=== PATIENT | female | born 1970 | race Caucasian/White ===

== ENCOUNTER 2017-09-15 14:59 | Observation (INO) ==
[2017-09-15] MEDS ORDERED: Isovue-370 500 ML INFUS..BTL IV ONE (15:11)
[2017-09-15] MEDS ORDERED: 0.9 % Sodium Chloride 500 ML IVC ONE (15:11)
--- NOTE | 2017-09-15 15:14 | Emergency Department Note ---
Disposition Clinical Impression: Pulmonary nodules Chest pain Qualifiers: Chest pain type: unspecified Qualified Code(s): R07.9 - Chest pain, unspecified Disposition: Admitted As Inpatient Condition: Undetermined Referrals: Nitza Perez DO [Primary Care Provider] - Forms: ED Satisfaction Letter Time of Disposition: 18:24 Chest Pain HPI - General Chief Complaint: ED Chest Pain Stated Complaint: chest pain Time Seen by Provider: 09/15/17 15:07 Source: patient Mode of arrival: ambulatory Limitations: no limitations Vital Signs Reviewed: Yes Nursing Notes Reviewed: Yes - History of Present Illness HPI Narrative: 47-year-old female smoker, arrives to the emergency department with complaint of chest pain, shortness of breath, left upper extremity paresthesias and headache. The patient states that this is been ongoing for the past couple days and she will actually went [facility] where they wanted to keep her perform a stress test but she refused at that time because she was scared. The patient denies any history of hypertension, hyperlipidemia, diabetes but does have family history of heart disease. The patient denies any other complaints at this time. She is very anxious in the room but denies any other complaints. The patient's pain is retrosternal and radiates into the left shoulder. The patient also is describing numbness and paresthesias of the left upper extremity and a headache. Patient's headache is throbbing in nature. She is alert and oriented 3 and answering all questions verbally. Severity scale (1-10): 5 - Related Data Home Medications Medication Instructions Recorded Confirmed Calcium Carbonate/Vitamin D3 1 each PO DAILY 03/09/16 09/13/17 [Calcium 600 + Vit D Tablet] raNITIdine HCl [Zantac] 150 mg PO QDPC 03/09/16 09/13/17 Allergies Allergy/AdvReac Type Severity Reaction Status Date / Time Erythromycin Base AdvReac Palpitation Verified 09/13/17 13:45 s All systems ED: reviewed and negative except as stated. Constitutional: Reports: weakness. Denies: fever, chills ENT ED: Denies: congestion Cardiovascular: Reports: chest pain, dyspnea on exertion. Denies: edema, syncope Respiratory: Reports: dyspnea. Denies: cough, wheezes Gastrointestinal: Denies: abdominal pain, nausea, vomiting Genitourinary: Denies: urgency, dysuria Musculoskeletal: Denies: back pain, neck pain Integumentary: Denies: rash Neurological: Reports: headache. Denies: weakness, numbness, paresthesias, confusion Chest Pain PMH - Past Medical History Medical history: Reports: GERD, osteoporosis Surgical history: Reports: non-contributory Psychiatric history: Reports: no psych history TRAILER ASSEMBLER history: Reports: no TRAILER ASSEMBLER history - Social History Smoking Status: Current every day smoker Alcohol use: Reports: occasionally Drug use: Reports: marijuana Physical Exam - General Limitations: no limitations General appearance: alert, in no apparent distress, anxious - Head Head exam: atraumatic, normocephalic, normal inspection - Eye Eye exam: Present: normal appearance, PERRL, EOMI - ENT ENT exam: normal exam, normal oropharynx, mucous membranes moist - Neck Neck exam: Present: normal inspection, full ROM, trachea midline - Chest Chest inspection: Present: normal inspection, symmetric chest wall rise - Respiratory Respiratory exam: Present: other (Coarse breath sounds) - Cardiovascular Cardiovascular exam: Present: regular rate, normal rhythm, normal heart sounds - Abdominal Exam Abdominal exam: Present: soft, Non-Tender. Absent: tenderness, distention, guarding, rebound, rigidity - Extremities Exam Extremities exam: Present: normal inspection, full ROM. Absent: tenderness, pedal edema - Neurological Exam Neurological exam: Present: alert, oriented X3 - Skin Skin exam: Present: warm, dry, intact, normal color Course Vital Signs Temperature 98.3 F 09/15/17 15:01 Pulse Rate 84 09/15/17 15:01 Respiratory Rate 16 09/15/17 15:01 Blood Pressure 125/83 09/15/17 15:01 O2 Sat by Pulse Oximetry 96 09/15/17 15:01 Temperature 98.3 F 09/15/17 15:09 Pulse Rate 84 09/15/17 15:09 Respiratory Rate 16 09/15/17 15:09 Blood Pressure 125/83 09/15/17 15:09 O2 Sat by Pulse Oximetry 96 09/15/17 15:09 Oxygen Delivery Oxygen Delivery Room Air Chest Pain - MDM Narrative Medical decision making narrative: Patient's workup in the emergency department demonstrates no acute process. The patient does have a large number pulmonary nodules noted on CT scan. No aortic dissection noted. The patient's EKG and troponin are negative but given the patient's continued symptoms, we will admit the patient to the hospital with likely cardio consult. The patient made aware and agrees to plan. No further questions or concerns noted at this time. Accepted by Dr. Clark. - Lab Data Lab results reviewed: Yes I reviewed the patient's lab results. Result diagrams: 09/15/17 15:10 09/15/17 15:10 Lab Results 09/15/17 09/15/17 09/15/17 Range/Units 15:10 15:10 15:10 WBC 10.5 (4.3-11.1) K/mcL RBC 4.78 (3.82-4.97) M/mcL Hgb 15.4 D (11.5-15.4) g/dL Hct 45.8 H (35.3-44.9) % MCV 95.8 (83.0-100.0) fL MCH 32.2 (28.0-33.3) pg MCHC 33.6 (31.6-35.5) g/dL RDW 12.1 (11.5-14.5) % Plt Count 250 (140-400) K/mcL MPV 9.6 (9.4-12.4) fL Immature Gran % 0.3 (0-4) % Seg Neutrophils % 67.2 % Lymphocytes % 27.4 % Monocytes % 4.2 % Eosinophils % 0.4 % Basophils % 0.5 % Neutrophils # 7.0 (1.6-8.9) K/mcL Lymphocytes # 2.9 (0.6-4.6) K/mcL Monocytes # 0.4 (0.0-1.3) K/mcL Eosinophils # 0.0 (0.0-0.6) K/mcL Basophils # 0.1 (0.0-0.2) K/mcL APTT 34.5 (26.0-36.0) Seconds Sodium 141 (136-145) mEq/L Potassium 3.7 (3.5-5.1) mEq/L Chloride 105 (98-107) mEq/L Carbon Dioxide 28 (23-29) mEq/L BUN 11 (6-20) mg/dL Creatinine 0.65 (0.60-1.20) mg/dL Est GFR ( Amer) > 60 (> 60) Est GFR (Non-Af Amer) > 60 (> 60) BUN/Creatinine Ratio 17 (6-26) Glucose 94 (70-105) mg/dL Calculated Osmolality 291 (280-300) Calcium 10.1 (8.6-10.3) mg/dL Troponin I < 0.03 (< 0.04) ng/mL - Radiology Data Radiology results reviewed: Yes I reviewed the patient's radiology results. Abdomen/Pelvis CTA 09/15/17 15:11 IMPRESSION: No evidence of thoracic or abdominal aortic dissection. Evidence of diffuse bronchial wall thickening, secondary bronchitis, reactive airways disease, or smoking. Several noncalcified nodules are identified within the lungs, largest measuring 7 mm. Comparison with old examinations would be most helpful. If those are not available, follow-up recommendations are below. Within the right upper lobe anterior segment bronchus, there is suggestion of a small filling defect, which could be secondary to mucous plugging. However, short-term follow-up (in approximately 3 months) is recommended to ensure resolution. At that time, the nodules can be re-evaluated as well. RECOMMENDATIONS: Fleischner Society guidelines for follow-up and management of incidentally detected pulmonary nodules: Multiple Solid Nodules: Nodule size equals 6-8 mm In a low-risk patient, CT at 3-6 months, then consider CT at 18-24 months. In a high-risk patient, CT at 3-6 months, then CT at 18-24 months. - Low risk patients include individuals with minimal or absent history of smoking and other known risk factors. - High risk patients include individuals with a history or smoking or known risk factors. Radiology 2017 http://pubs.rsna.org/doi/full/10.1148/radiol.[email or web address] D/ / Isaias North MD / Isaias North MD Interpreting Provider: Isaias North MD Chest CTA 09/15/17 15:11 IMPRESSION: No evidence of thoracic or abdominal aortic dissection. Evidence of diffuse bronchial wall thickening, secondary bronchitis, reactive airways disease, or smoking. Several noncalcified nodules are identified within the lungs, largest measuring 7 mm. Comparison with old examinations would be most helpful. If those are not available, follow-up recommendations are below. Within the right upper lobe anterior segment bronchus, there is suggestion of a small filling defect, which could be secondary to mucous plugging. However, short-term follow-up (in approximately 3 months) is recommended to ensure resolution. At that time, the nodules can be re-evaluated as well. RECOMMENDATIONS: Fleischner Society guidelines for follow-up and management of incidentally detected pulmonary nodules: Multiple Solid Nodules: Nodule size equals 6-8 mm In a low-risk patient, CT at 3-6 months, then consider CT at 18-24 months. In a high-risk patient, CT at 3-6 months, then CT at 18-24 months. - Low risk patients include individuals with minimal or absent history of smoking and other known risk factors. - High risk patients include individuals with a history or smoking or known risk factors. Radiology 2017 http://pubs.rsna.org/doi/full/10.1148/[email or web address] D/ / Isaias North MD / Isaias North MD Interpreting Provider: Isaias North MD Chest X-Ray 09/15/17 15:11 IMPRESSION: No acute cardiopulmonary findings. D/ / Kiara Pina MD / Kiara Pina MD Interpreting Provider: Kiara Pina MD - EKG Data EKG attestation: Yes I reviewed and interpreted this EKG. EKG results narrative: Heart rate 85 bpm. Normal sinus rhythm. No ST elevation or ST depression noted. Flipped T waves noted in lead 3. No other acute changes noted.
[2017-09-15 15:23] LABS: Basophils # 0.1 K/mcL (0.0-0.2); Basophils % 0.5 %; Eosinophils % 0.4 %; Hematocrit 45.8 % (35.3-44.9); Hemoglobin 15.4 g/dL (11.5-15.4); Immature Granulocytes % 0.3 % (0-4); Lymphocytes # 2.9 K/mcL (0.6-4.6); Lymphocytes % 27.4 %; Mean Corpuscular HGB Conc 33.6 g/dL (31.6-35.5); Mean Corpuscular Hemoglobin 32.2 pg (28.0-33.3); Mean Corpuscular Volume 95.8 fL (83.0-100.0); Mean Platelet Volume 9.6 fL (9.4-12.4); Monocytes # 0.4 K/mcL (0.0-1.3); Monocytes % 4.2 %; Platelet Count 250 K/mcL (140-400); Red Blood Count 4.78 M/mcL (3.82-4.97); Red Cell Distribution Width 12.1 % (11.5-14.5); Segmented Neutrophils % 67.2 %
--- NOTE | 2017-09-15 15:37 | Emergency Department Note ---
Disposition Clinical Impression: Pulmonary nodules Chest pain Qualifiers: Chest pain type: unspecified Qualified Code(s): R07.9 - Chest pain, unspecified Disposition: Admitted As Inpatient Condition: Undetermined Referrals: Nitza Perez DO [Primary Care Provider] - Forms: ED Satisfaction Letter General Adult HPI - General Chief complaint: ED Chest Pain Stated complaint: chest pain Time Seen by Provider: 09/15/17 15:07 Source: patient Mode of arrival: ambulatory Limitations: no limitations Nursing Notes Reviewed: Yes Vital Signs Reviewed: Yes - History of Present Illness Pain Scale: 5 - Related Data Home Medications Medication Instructions Recorded Confirmed Calcium Carbonate/Vitamin D3 1 each PO DAILY 03/09/16 09/13/17 [Calcium 600 + Vit D Tablet] raNITIdine HCl [Zantac] 150 mg PO QDPC 03/09/16 09/13/17 Allergies Allergy/AdvReac Type Severity Reaction Status Date / Time Erythromycin Base AdvReac Palpitation Verified 09/13/17 13:45 s Constitutional: Reports: weakness. Denies: fever, chills ENT ED: Denies: congestion Cardiovascular: Reports: chest pain, dyspnea on exertion. Denies: edema, syncope Respiratory: Reports: dyspnea. Denies: cough, wheezes Gastrointestinal: Denies: abdominal pain, nausea, vomiting Genitourinary: Denies: urgency, dysuria Musculoskeletal: Denies: back pain, neck pain Integumentary: Denies: rash Neurological: Reports: headache. Denies: weakness, numbness, paresthesias, confusion Past Medical History - Past Medical History Medical history: Reports: GERD, osteoporosis Surgical history: Reports: non-contributory Psychiatric history: Reports: no psych history RESOLUTION AGENT history: Reports: no RESOLUTION AGENT history - Social History Smoking Status: Current every day smoker Smokeless Tobacco Status: No Alcohol use: Reports: occasionally Drug use: Reports: marijuana Physical Exam - General Limitations: no limitations General appearance: alert, in no apparent distress, anxious Course Vital Signs Temperature 98.3 F 09/15/17 15:01 Pulse Rate 84 09/15/17 15:01 Respiratory Rate 16 09/15/17 15:01 Blood Pressure 125/83 09/15/17 15:01 O2 Sat by Pulse Oximetry 96 09/15/17 15:01 Temperature 98.3 F 09/15/17 15:09 Pulse Rate 84 09/15/17 15:09 Respiratory Rate 16 09/15/17 15:09 Blood Pressure 125/83 09/15/17 15:09 O2 Sat by Pulse Oximetry 96 09/15/17 15:09 Oxygen Delivery Oxygen Delivery Room Air Medical Decision Making - Lab Data Result diagrams: 09/15/17 15:10 09/15/17 15:10 Lab Results 09/15/17 09/15/17 09/15/17 Range/Units 15:10 15:10 15:10 WBC 10.5 (4.3-11.1) K/mcL RBC 4.78 (3.82-4.97) M/mcL Hgb 15.4 D (11.5-15.4) g/dL Hct 45.8 H (35.3-44.9) % MCV 95.8 (83.0-100.0) fL MCH 32.2 (28.0-33.3) pg MCHC 33.6 (31.6-35.5) g/dL RDW 12.1 (11.5-14.5) % Plt Count 250 (140-400) K/mcL MPV 9.6 (9.4-12.4) fL Immature Gran % 0.3 (0-4) % Seg Neutrophils % 67.2 % Lymphocytes % 27.4 % Monocytes % 4.2 % Eosinophils % 0.4 % Basophils % 0.5 % Neutrophils # 7.0 (1.6-8.9) K/mcL Lymphocytes # 2.9 (0.6-4.6) K/mcL Monocytes # 0.4 (0.0-1.3) K/mcL Eosinophils # 0.0 (0.0-0.6) K/mcL Basophils # 0.1 (0.0-0.2) K/mcL APTT 34.5 (26.0-36.0) Seconds Sodium 141 (136-145) mEq/L Potassium 3.7 (3.5-5.1) mEq/L Chloride 105 (98-107) mEq/L Carbon Dioxide 28 (23-29) mEq/L BUN 11 (6-20) mg/dL Creatinine 0.65 (0.60-1.20) mg/dL Est GFR ( Amer) > 60 (> 60) Est GFR (Non-Af Amer) > 60 (> 60) BUN/Creatinine Ratio 17 (6-26) Glucose 94 (70-105) mg/dL Calculated Osmolality 291 (280-300) Calcium 10.1 (8.6-10.3) mg/dL Troponin I < 0.03 (< 0.04) ng/mL Attestation Statement - Attestation Attestation: This documentation is done with the assistance of Dragon dictation. Despite efforts made to ensure accuracy, there may be inaccuracies in design engineering manager or spelling and typographical errors. I examined this patient and my medical decision-making was reviewed with the Resident Physician. I agree with the documented findings, disposition and treatment plan as described except to the extent set forth below. Patient seen and evaluated by Dr. Aguirre and myself, I agree with his evaluation and management plan, supervise care the patient's stay. Patient's had some intermittent chest pain was going on earlier this week was seen in outside hospital. They wanted to admit her she refused. Now she is back. Were doing a cardiac workup reviewed her labs there and will reassess. She is in agreement this plan. Chest X-Ray 09/15/17 15:11 IMPRESSION: No acute cardiopulmonary findings. D/ / Kiara Pina MD / Kiara Pina MD Interpreting Provider: Kiara Pina MD Patient's labs are back. She like to be admitted we will administer further cardiac workup.
[2017-09-15 15:48] LABS: BUN/Creatinine Ratio 17 (6-26); Blood Urea Nitrogen 11 mg/dL (6-20); Calcium 10.1 mg/dL (8.6-10.3); Carbon Dioxide 28 mEq/L (23-29); Chloride 105 mEq/L (98-107); Glucose 94 mg/dL (70-105); Osmolality,Calculated 291 (280-300); Potassium 3.7 mEq/L (3.5-5.1); Sodium 141 mEq/L (136-145); Troponin I < 0.03 ng/mL (< 0.04); eGFR For African Americans > 60 (> 60); eGFR For Non-African Americans > 60 (> 60)
[2017-09-15] MEDS ORDERED: Naloxone 0.4 MG/ML INJ IVP PRN (19:54)
[2017-09-15] MEDS ORDERED: Potassium Chloride Elixir 20 MEQ/15 ML UDC PO ONE (19:57)
--- NOTE | 2017-09-15 20:30 | Internal Med History&Physical ---
Date of Encounter: 09/15/17 Time of Encounter: 20:27 Internal Medicine - H&P: HPI Chief complaint: chest pain History of present illness: Ms. Mcgee is a 47 year old female who presents with chest pain eval. She has a hx of GERD and risk factor of smoking 3/4 PPD for 30 years. She developed bilateral shoulder and chest symptoms since Tuesday afternoon while she was at her desk at work. She describes almost a tension-like symptoms of bilateral shoulder associated with radiation of discomfort to bilateral upper extremity with worse symptoms on the right than the left. She also describes radiation in association shoulder symptoms to her chest. She describes it as a pressure sensation along her chest, rated 5 out of 10, sleeping makes the pain better. It appears that her bilateral shoulder pain had an persistent since onset on Tuesday up until today. She was seen and [facility] on Tuesday and was referred to follow-up with her outpatient nurse practitioner today before being advised to reenter the ER for admission. She reports of stresses in life. 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 EKG personally reviewed with rate of 85, normal sinus rhythm XR/XR chest 1V portable IMPRESSION: No acute cardiopulmonary findings. CT/CT angio chest IMPRESSION: No evidence of thoracic or abdominal aortic dissection. Evidence of diffuse bronchial wall thickening, secondary bronchitis, reactive airways disease, or smoking. Several noncalcified nodules are identified within the lungs, largest measuring 7 mm. Comparison with old examinations would be most helpful. If those are not available, follow-up recommendations are below. Within the right upper lobe anterior segment bronchus, there is suggestion of a small filling defect, which could be secondary to mucous plugging. However, short-term follow-up (in approximately 3 months) is recommended to ensure resolution. At that time, the nodules can be re-evaluated as well. RECOMMENDATIONS: Fleischner Society guidelines for follow-up and management of incidentally detected pulmonary nodules: Multiple Solid Nodules: Nodule size equals 6-8 mm In a low-risk patient, CT at 3-6 months, then consider CT at 18-24 months. In a high-risk patient, CT at 3-6 months, then CT at 18-24 months. - Low risk patients include individuals with minimal or absent history of smoking and other known risk factors. - High risk patients include individuals with a history or smoking or known risk factors. CT/CT angio abdomen pelvis IMPRESSION: No evidence of thoracic or abdominal aortic dissection. Evidence of diffuse bronchial wall thickening, secondary bronchitis, reactive airways disease, or smoking. Several noncalcified nodules are identified within the lungs, largest measuring 7 mm. Comparison with old examinations would be most helpful. If those are not available, follow-up recommendations are below. Within the right upper lobe anterior segment bronchus, there is suggestion of a small filling defect, which could be secondary to mucous plugging. However, short-term follow-up (in approximately 3 months) is recommended to ensure resolution. At that time, the nodules can be re-evaluated as well. RECOMMENDATIONS: Fleischner Society guidelines for follow-up and management of incidentally detected pulmonary nodules: Multiple Solid Nodules: Nodule size equals 6-8 mm In a low-risk patient, CT at 3-6 months, then consider CT at 18-24 months. In a high-risk patient, CT at 3-6 months, then CT at 18-24 months. - Low risk patients include individuals with minimal or absent history of smoking and other known risk factors. - High risk patients include individuals with a history or smoking or known risk factors. Past Med Surg Social Fam HX - Past Medical History Medical history: GERD, osteoporosis Additional medical history: OP Psychiatric history: no psych history - Past Surgical History Surgical History: non-contributory - Social History Smoking Status: Current every day smoker Smokeless Tobacco Status: No Alcohol use: occasionally Drug use: marijuana - Family History Mother Hx Family Cardiac Disorders: Yes (HTN< HLD, murmur, mitral valve prolapse) Internal Medicine - H&P: Meds Calcium Carbonate/Vitamin D3 [Calcium 600 + Vit D Tablet] 1 each PO DAILY [History] Calcipotriene [Dovonex] 1 appl TP DAILY 09/15/17 [History] Multivitamin [One Daily Essential] 1 tab PO DAILY 09/15/17 [History] Ranitidine HCl [Acid Survey Director] 150 mg PO DAILY 09/15/17 [History] 3 Allergy/AdvReac Type Severity Reaction Status Date / Time Erythromycin Base AdvReac Palpitation Verified 09/15/17 18:31 s All Systems PM: A 10-system review of systems was performed and is negative for pertinent findings except as documented above in the HPI. Review of systems: ROS 14 point review of systems reviewed as best as possible given presentation. Pertinent positive or negative as per HPI or otherwise reviewed as negative - Constitutional Vitals: Temp Pulse Resp BP Pulse Ox 98.1 F 63 14 126/81 98 09/15/17 19:13 09/15/17 19:13 09/15/17 19:13 09/15/17 19:13 09/15/17 19:13 Exam: General - AAO x 3 Psych - Appropriate affect/speech. No agitation Eyes - HEMA. Eye lids intact. No scleral icterus Neuro - No gross peripheral or central neuro deficits on inspection Heart - Sinus. RRR. S1 and S2 present. No added HS/murmurs appreciated. No elevated JVD appreciated. Lung - Adequate air entry b/l, No crackles/wheezes appreciated GI - Soft, non-tender. No hepatosplenomegaly/ascites. BS+ - No CVA/suprapubic tenderness or palpable bladder distension Skin - Intact. No rash/petechiae/ecchymosis. Warm extremities MSK - reproducible stiffness of muscles and pain along the bilateral shoulder muscles and sternal area Internal Med - H&P Results - Labs CBC & Chem 7: 09/15/17 15:10 09/15/17 15:10 - Assessment and plan (1) Atypical chest pain Current Visit: No Status: Acute Assessment and plan: admitted for cardiac CP r/o. Suspect MSK related pain trend trop for now, tele monitor overnight trial ibuprofen for MSK pain (2) GERD (gastroesophageal reflux disease) Current Visit: Yes Status: Acute Assessment and plan: rantidine BID Qualifiers: Esophagitis presence: without esophagitis Qualified Code(s): K21.9 - Gastro -esophageal reflux disease without esophagitis (3) Tobacco abuse Current Visit: Yes Status: Acute Assessment and plan: smokes 3/4 PPD for many years (4) Pulmonary nodules Current Visit: Yes Status: Acute Assessment and plan: interval PCP follow up - Time Spent With Patient Total time spent is greater than 50% in coordination of care (as documented) at patient's floor/unit and/or counseling patient:
[2017-09-15] MEDS ORDERED: 0.9 % Sodium Chloride 1,000 ML IVC ONE (20:34)
[2017-09-15] MEDS: Nicotine 14 MG PATCH.TD24 TD SCH (21:04)
[2017-09-15] MEDS: Famotidine 20 MG TABLET PO SCH (21:05)
[2017-09-16 06:56] LABS: Creatine Kinase 38 Units/L (30-223)
[2017-09-16 06:58] LABS: Troponin I < 0.03 ng/mL (< 0.04)
[2017-09-16] MEDS: Nicotine 14 MG PATCH.TD24 TD SCH (09:56)
[2017-09-16] MEDS: Famotidine 20 MG TABLET PO SCH ×2 (09:56→21:39)
[2017-09-16] MEDS: Acetaminophen 325 MG TABLET PO PRN ×2 (11:30→21:44)
--- NOTE | 2017-09-16 13:32 | Internal Med Progress Note ---
Date of Encounter: 09/16/17 Time of Encounter: 13:29 - Assessment and plan (1) Atypical chest pain Current Visit: No Status: Acute Assessment and plan: presented with chest pain. Serial troponins negative. EKG without acute ST changes. Chest CTA negative for pulmonary embolism or dissection. No previous ischemic evaluation. Cardiac risk factors include smoking and family history. Stress test and echocardiogram pending. NPO at midnight. (2) Bronchitis Current Visit: Yes Status: Acute Assessment and plan: chest CTA with Evidence of diffuse bronchial wall thickening, secondary bronchitis, reactive airways disease, or smoking. Symptomatically with productive cough. No fever or wheezing. Start cefepime/azithromycin (3) Pulmonary nodules Current Visit: Yes Status: Acute Assessment and plan: Several noncalcified nodules are identified within the lungs, largest measuring 7 mm. Within the right upper lobe anterior segment bronchus, there is suggestion of a small filling defect, which could be secondary to mucous plugging. However, short-term follow-up (in approximately 3 months) is recommended to ensure resolution. At that time, the nodules can be re- evaluated as well. (4) GERD (gastroesophageal reflux disease) Current Visit: Yes Status: Acute Assessment and plan: per hx. Cont home PPI Qualifiers: Esophagitis presence: without esophagitis Qualified Code(s): K21.9 - Gastro -esophageal reflux disease without esophagitis (5) Tobacco abuse Current Visit: Yes Status: Acute Assessment and plan: smokes 3/4 PPD for many years. Cessation advised - Time Spent With Patient Total time spent is greater than 50% in coordination of care (as documented) at patient's floor/unit and/or counseling patient: - Subjective Interval history: Seen and examined at bedside. Patient is new to me, information obtained from chart review and patient report. Still having some mild chest discomfort that is not reproducible. Does not radiate. Nothing makes better or worse. She is agreeable for inpatient stress test. - Constitutional Vitals: Temp Pulse Resp BP Pulse Ox 98.3 F 61 17 116/68 97 09/16/17 11:24 09/16/17 11:24 09/16/17 11:24 09/16/17 11:24 09/16/17 11:24 General appearance: Present: A&O X 3, no acute distress - Head Head exam: Present: atraumatic, normocephalic - Eye Eye exam: Present: PERRL, conjuntiva pink, sclera anicteric Pupils: Present: PERRL - Neck Neck exam general surgery: Present: supple, trachea midline. Absent: lymphadenopathy - Respiratory Respiratory exam: Present: CTAB. Absent: accessory muscle use, rales, rhonchi, wheezes - Cardiovascular Cardiovascular exam: Present: RRR, +S1, +S2. Absent: diastolic murmur, gallop, rubs, systolic murmur - GI/Abdominal GI/Abdominal exam: Present: normal bowel sounds, soft, no peritoneal signs. Absent: distended, tenderness - Extremities Exam Extremities exam: Present: warm, radial pulses palpable and symmetrical. Absent : calf tenderness, cyanotic, pedal edema - Neurological Exam Neurological exam: Present: CN II-XII intact, oriented X3, no focal deficits. Absent: pronater drift, facial droop, speech deficit - Skin Skin exam: Present: dry, intact Internal Medicine: Result - Labs CBC & Chem 7: 09/15/17 15:10 09/15/17 15:10 Labs: Cardiac Enzymes 09/15/17 09/16/17 09/16/17 Range/Units 22:00 05:58 11:33 Troponin I < 0.03 < 0.03 < 0.03 (< 0.04) ng/mL Consult Discharge Plan - Plan Referrals: Nitza Perez DO [Primary Care Provider] - 09/22/17 10:00 am
[2017-09-16] MEDS ORDERED: Azithromycin 500 MG in D5% in Water 250 ML IVPB SCH (14:00)
[2017-09-16] MEDS ORDERED: cefTRIAXone 1,000 MG in 0.9 % Sodium Chloride Mini Bag 100 ML IVPB SCH (14:00)
[2017-09-17] MEDS: Acetaminophen 325 MG TABLET PO PRN (10:13)
[2017-09-17] MEDS: Nicotine 14 MG PATCH.TD24 TD SCH (10:13)
[2017-09-17] MEDS: Famotidine 20 MG TABLET PO SCH (10:13)
[2017-09-17 11:20] VITALS: BP 107/72
[2017-09-17] MEDS ORDERED: Levofloxacin 750 MG/150 ML 750 MG/150 ML BAG IVPB SCH (14:00)
--- NOTE | 2017-09-17 14:58 | Discharge Summary ---
- NOTES TO OUTPATIENT PROVIDER Notes to Outpatient Provider: Recommend follow-up within one week. Also recommend referral to cardiology for evaluation of mitral regurgitation. Patient will need to have repeat chest CT in 3 months to follow-up with lung nodules Orders not resulted at time of discharge: Pending orders 09/17/17 07:30 NM sarah perf SPECT multi [NM] Routine Date of Encounter: 09/17/17 Time of Encounter: 14:58 - Discharge Diagnosis (1) Atypical chest pain Priority: Primary Status: Acute Assessment and Plan: presented with chest pain. Serial troponins negative. EKG without acute ST changes. Chest CTA negative for pulmonary embolism or dissection. No previous ischemic evaluation. Cardiac risk factors include smoking and family history. TTE with EF 60%, mild diastolic dysfunction, normal wall motion abnormalities. Stress test today for acute infarct or ischemia. Suspect chest pain possibly secondary to COPD exacerbation/bronchitis as chest pain was worse with inspiration. Symptoms improved at time of discharge. (2) Bronchitis Priority: Primary Status: Acute Assessment and Plan: chest CTA with Evidence of diffuse bronchial wall thickening, secondary bronchitis, reactive airways disease, or smoking. Symptomatically with productive cough. Discharge home on Levaquin and steroids (3) Pulmonary nodules Priority: Primary Status: Acute Assessment and Plan: Several noncalcified nodules are identified within the lungs, largest measuring 7 mm. Within the right upper lobe anterior segment bronchus, there is suggestion of a small filling defect, which could be secondary to mucous plugging. However, short-term follow-up (in approximately 3 months) is recommended to ensure resolution. At that time, the nodules can be re- evaluated as well. (4) GERD (gastroesophageal reflux disease) Priority: Primary Status: Acute Assessment and Plan: per hx. Cont home PPI Qualifiers: Esophagitis presence: without esophagitis Qualified Code(s): K21.9 - Gastro -esophageal reflux disease without esophagitis (5) Tobacco abuse Priority: Primary Status: Acute Assessment and Plan: smokes 3/4 PPD for many years. Cessation advised Hospital course: Please see assessment and plan for Hospital course Discharge discussed with: patient (Seen and examined at bedside. Patient still having some chest discomfort that is worse with inspiration. Discussed inpatient stress test versus outpatient follow-up and patient preferred to follow-up with her PCP. Advised return to ER if chest pain/SOB worsens.) - Time Spent with Patient Total time spent providing and/or coordinating discharge services: - Discharge Medications Prescriptions: levoFLOXacin [Levaquin] 750 mg PO DAILY #5 tablet predniSONE [PredniSONE] 40 mg PO DAILY 5 Days #10 tablet Home Medications: Calcium Carbonate/Vitamin D3 [Calcium 600 + Vit D Tablet] 1 each PO DAILY [History] Calcipotriene [Dovonex] 1 appl TP DAILY 09/15/17 [History] Multivitamin [One Daily Essential] 1 tab PO DAILY 09/15/17 [History] Ranitidine HCl [Acid [place] Man] 150 mg PO DAILY 09/15/17 [History] levoFLOXacin [Levaquin] 750 mg PO DAILY #5 tablet 09/17/17 [Rx] predniSONE [PredniSONE] 40 mg PO DAILY 5 Days #10 tablet 09/17/17 [Rx] Allergies/Adverse Reactions: 3 Allergy/AdvReac Type Severity Reaction Status Date / Time Erythromycin Base AdvReac Palpitation Verified 09/15/17 18:31 s Date of admission: 09/15/17 18:28 Primary care physician: Tom España Discharging clinician: Nessa Dave Anticipated date of discharge: 09/17/17 - Constitutional Vitals: Temp Pulse Resp BP Pulse Ox 97.8 F 72 16 107/72 96 09/17/17 11:18 09/17/17 11:18 09/17/17 11:18 09/17/17 11:18 09/17/17 11:18 General appearance: Present: A&O X 3, no acute distress - Head Head exam: Present: atraumatic, normocephalic - Eye Eye exam: Present: PERRL, conjuntiva pink, sclera anicteric Pupils: Present: PERRL - Neck Neck exam general surgery: Present: supple, trachea midline. Absent: lymphadenopathy - Respiratory Respiratory exam: Present: CTAB. Absent: accessory muscle use, rales, rhonchi, wheezes - Cardiovascular Cardiovascular exam: Present: RRR, +S1, +S2. Absent: diastolic murmur, gallop, rubs, systolic murmur - GI/Abdominal GI/Abdominal exam: Present: normal bowel sounds, soft, no peritoneal signs. Absent: distended, tenderness - Extremities Exam Extremities exam: Present: warm, radial pulses palpable and symmetrical. Absent : calf tenderness, cyanotic, pedal edema - Neurological Exam Neurological exam: Present: CN II-XII intact, oriented X3, no focal deficits. Absent: pronater drift, facial droop, speech deficit - Skin Skin exam: Present: dry, intact - Patient Status Disposition: Home, Self-Care Condition: Good Functional capacity at discharge: independent ambulation Overall status at discharge: patient is progressing back to baseline - Discharge Instructions Follow Up With: Nitza Perez DO [Primary Care Provider] - 09/22/17 10:00 am (Please call your primary care doctor within one week for follow-up appointment. It is recommended that you have a repeat CAT scan of her chest to assess lung nodules. Echocardiogram also showed mild to moderate control regurgitation. Please ask your primary care physician for referral to cardiology) - Diet and Activity Activity: increase activity as tolerated Diet: advance to your usual diet
--- NOTE | 2017-09-18 21:17 | Electrocardiograph Report ---
[place] [id number] Test Date: 2017-09-15 Pat Name: Trish Mcgee Department: 104 Room: 3B Gender: F [employer]: AM : 1970 Requested By: Srinivas Marquez Order Number: [id number] Reading MD: Phuc Crowder Measurements Intervals [place] Rate: 85 P: 69 NE: 157 QRS: 56 QRSD: 93 T: 42 QT: 329 QTc: 372 Interpretive Statements SINUS RHYTHM NONSPECIFIC T-WAVE ABNORMALITY Electronically Signed On 09-18-2017 21:15:59 EDT by Phuc Crowder
== END 2017-09-17 15:55 | disposition home or self-care (01) ==
LOC: 3BNU 14:59 → EMEROO 14:59 → 3BNU 18:45
PROVIDERS: ADMIT Family Medicine; ATTEND Family Medicine